=== PATIENT | female | born 1990 | race Caucasian/White ===

== ENCOUNTER 2023-10-02 20:08 | Emergency (ER) | payer OTHER ==
[~2023-10-02] VITALS: Ht 167.6 cm; Wt 79.0 kg
[2023-10-02 20:22] VITALS: BP 126/78; PULSE 72; RESP 16; TEMP 98.6; O2SAT 100
[2023-10-02] MEDS ORDERED: IBUP-2028 MT (23:18)
[2023-10-02] MEDS ORDERED: ACET-2708 MT (23:18)
== END 2023-10-02 23:58 | disposition home or self-care (01) ==
LOC: ER 20:08
DX: S93.401A Sprain of unspecified ligament of right ankle, initial encounter (principal); X58.XXXA Exposure to other specified factors, initial encounter; Y93.89 Activity, other specified; Y92.89 Other specified places as the place of occurrence of the external cause; Y99.8 Other external cause status
CPT/HCPCS: 29515; 73610; 81025; 99283